=== PATIENT | female | born 1945 | race Asian ===

== ENCOUNTER 2017-12-27 08:22 | Inpatient (IN) | payer OTHER, BC ==
--- NOTE | 2017-12-27 08:47 | CPEKG ---
Heart Rate: 74 RR Interval: 811 P-R Interval: 156 QRSD Interval: 76 QT Interval: 416 QTC Interval: 462 P [place]: 19 QRS [place]: 7 T Wave [place]: 72 EKG Severity - BORDERLINE ECG - EKG Impression: SINUS RHYTHM EKG Impression: BORDERLINE T WAVE ABNORMALITIES Electronically Signed By: Carley Turner 27-Dec-2017 14:45:50
[2017-12-27] MEDS ORDERED: NS 500 ML IV ONE (08:52)
--- NOTE | 2017-12-27 08:59 | EDPHY ---
H & P Time Seen by Provider: 12/27/17 08:39 HPI/ROS: CHIEF COMPLAINT: Fall, head injury HISTORY OF PRESENT ILLNESS: Patient is a 72-year-old female with a history of dementia who presents to the emergency department after having a fall. The patient was found down in the bathroom. Per report, her family thinks that she was washing her hands when she fell. It is unclear how long she was down. The patient does not recall the event. The patient has no recollection of preceding symptoms. The patient denies any headache or neck pain. No chest pain or shortness of breath. No abdominal pain. No nausea or vomiting. The patient is visiting her son from [place]. She has been here for 3 days. REVIEW OF SYSTEMS: My complete review of systems is negative except as mentioned in the HPI. Past Medical/Surgical History: Includes dementia, chronic pain, GERD, rectal cancer (remote) Past surgical history: Rectal canceled surgery. Social history: The patient is . She lives in [place]. No drugs or alcohol. Smoking Status: Never smoked Physical Exam: 36.5, 123/67, 70, 16, 94% on room air GENERAL: No acute distress, alert. HEENT: PERRLA. Eyes normal to inspection, normal pharynx, no signs of dehydration. The patient has a posterior hematoma with laceration 2 cm. No galea involvement. NECK: No thyromegaly, no lymphadenopathy, supple. No spinal tenderness. RESPIRATORY: Clear to auscultation bilaterally, no rales, rhonchi or wheezing. No chest wall tenderness. CVS: Regular rate and rhythm, no rubs, murmurs, or gallops. ABDOMEN: Soft, nontender, nondistended, no organomegaly. BACK: Normal to inspection, no CVA tenderness. No spinal tenderness. SKIN: Normal color, no rash, warm, dry. No pallor. EXTREMITIES: No pedal edema, no calf tenderness, no Homans sign or cords, no joint swelling. Moves all extremities freely. No signs traumatic injury. NEURO/PSYCH: Alert and oriented x2, normal mood and affect, normal motor sensory exam. No obvious cranial nerve deficit. Constitutional: Initial Vital Signs Temperature (C) 36.5 C 12/27/17 08:23 Heart Rate 78 12/27/17 08:23 Respiratory Rate 16 12/27/17 08:23 Blood Pressure 122/67 H 12/27/17 08:23 O2 Sat (%) 94 12/27/17 08:23 O2 Delivery Mode Room Air Allergies/Adverse Reactions: shrimp Allergy (Uncoded 12/27/17 08:27) Home Medications: Medication Instructions Recorded Lyrica 12/27/17 Omeprazole 12/27/17 Medical Decision Making - Diagnostics Imaging Results: Imaging Impressions Cervical Spine CT 12/27/17 08:54 Impression: 1. There is no acute intracranial abnormality identified on this unenhanced CT evaluation. 2. There is a 2.6 cm right posterior parietal scalp hematoma. There is no associated skull fracture. 3. Advanced senescent features. UNENHANCED CT SCAN OF THE CERVICAL SPINE Technique: A multidetector unenhanced helical CT scan was obtained from the clivus caudally through the upper thoracic spine, with images reformatted at 1.50 mm increments, and are reviewed in soft tissue, bone, and lung windows. Parasagittal and paracoronal reconstructed images are reviewed on the workstation. The DFOV is 12.5 cm. A dose reduction protocol was used. Findings: There is reversal of the normal cervical lordosis, suggestive of either recumbent positioning or underlying muscle spasm. There is also a slight head tilt to the right and a mild levocervical curvature. The cervical vertebral body heights and posterior alignments are preserved. There is no acute fracture, or facet malalignment. The interspinous distances are normal. The craniocervical junction is normal. The predental space, and the atlantoaxial lateral mass alignment is normal. The base and the tip of the dens are normal. There is advanced degenerative disk space narrowing at C5-C6 with a dorsal disk osteophyte complex resulting in a moderate central canal stenosis, with an AP canal diameter of 8.9 mm. There is mild facet hypertrophy and uncovertebral degenerative spondylosis resulting in mild right and moderate left neural foraminal stenosis at this level. There is no prevertebral or epidural hematoma identified. There is mild thyromegaly. There is some atherosclerotic calcification associated with the carotid bulbs and bifurcations. The right internal jugular vein is more dominant in size than the left. The lung apices are notable for some areas of mild air trapping/minimal groundglass attenuation. Impression: 1. Reversal of the normal cervical lordosis. 2. Advanced degenerative disk disease and degenerative spondylosis at C5-C6 with a dorsal disk osteophyte complex resulting in moderate central canal stenosis, moderate left neural foraminal narrowing, and mild right neural foraminal narrowing. 3. There is no acute cervical osseous abnormality identified. If there is further clinical concern regarding the patient's symptoms, correlative MR imaging could be considered, if otherwise not contraindicated. Findings were discussed with MAGALYS ESPINAL MD at 10:23, on 12/27/2017. Head CT 12/27/17 08:54 Impression: 1. There is no acute intracranial abnormality identified on this unenhanced CT evaluation. 2. There is a 2.6 cm right posterior parietal scalp hematoma. There is no associated skull fracture. 3. Advanced senescent features. UNENHANCED CT SCAN OF THE CERVICAL SPINE Technique: A multidetector unenhanced helical CT scan was obtained from the clivus caudally through the upper thoracic spine, with images reformatted at 1.50 mm increments, and are reviewed in soft tissue, bone, and lung windows. Parasagittal and paracoronal reconstructed images are reviewed on the workstation. The DFOV is 12.5 cm. A dose reduction protocol was used. Findings: There is reversal of the normal cervical lordosis, suggestive of either recumbent positioning or underlying muscle spasm. There is also a slight head tilt to the right and a mild levocervical curvature. The cervical vertebral body heights and posterior alignments are preserved. There is no acute fracture, or facet malalignment. The interspinous distances are normal. The craniocervical junction is normal. The predental space, and the atlantoaxial lateral mass alignment is normal. The base and the tip of the dens are normal. There is advanced degenerative disk space narrowing at C5-C6 with a dorsal disk osteophyte complex resulting in a moderate central canal stenosis, with an AP canal diameter of 8.9 mm. There is mild facet hypertrophy and uncovertebral degenerative spondylosis resulting in mild right and moderate left neural foraminal stenosis at this level. There is no prevertebral or epidural hematoma identified. There is mild thyromegaly. There is some atherosclerotic calcification associated with the carotid bulbs and bifurcations. The right internal jugular vein is more dominant in size than the left. The lung apices are notable for some areas of mild air trapping/minimal groundglass attenuation. Impression: 1. Reversal of the normal cervical lordosis. 2. Advanced degenerative disk disease and degenerative spondylosis at C5-C6 with a dorsal disk osteophyte complex resulting in moderate central canal stenosis, moderate left neural foraminal narrowing, and mild right neural foraminal narrowing. 3. There is no acute cervical osseous abnormality identified. If there is further clinical concern regarding the patient's symptoms, correlative MR imaging could be considered, if otherwise not contraindicated. Findings were discussed with MAGALYS ESPINAL MD at 10:23, on 12/27/2017. Procedures: Procedure: Laceration repair. Verbal consent was obtained from the patient. The 2 cm laceration on the posterior head was anesthetized using lidocaine and epinephrine. The wound was scrubbed, draped and explored to its base with a gloved finger. There were no deep structures involved. The wound was repaired with azeem. The wound repair was simple. The procedure was performed by myself. ED Course/Re-evaluation: In the emergency department I discussed possible etiologies with the patient and family. I answered all her questions. An IV was placed. Laboratory studies, head CT, C-spine CT and EKG were obtained. Sinus rhythm at 74. Normal axis. Normal intervals. Borderline T-wave abnormalities. The patient's CBC and chemistry were unremarkable. Troponin was negative. Head CT, C-spine CT: Please refer the dictated report by Dr. Robles. No acute disease noted other than the hematoma. I discussed the results with the patient and family. I answered all their questions. On recheck the patient was doing well. She had no complaints. The patient's wound was repaired. I discussed case with the hospitalist service. Dr. Moreno will admit. Differential Diagnosis: My differential includes but is not limited to syncope, fall, dementia, subarachnoid hemorrhage, subdural hematoma, epidural hematoma, skull fracture, laceration, electrolyte abnormality, sugar abnormality, dysrhythmia, ACS, acute AL, dissection, aneurysm, CVA - Data Points Laboratory Results: Laboratory Results 12/27/17 08:50 12/27/17 08:50 12/27/17 12/27/17 08:50 08:50 WBC 8.61 10^3/uL 10^3/uL (3.80-9.50) RBC 4.36 10^6/uL 10^6/uL (4.18-5.33) Hgb 12.8 g/dL g/dL (12.6-16.3) Hct 39.0 % % (38.0-47.0) MCV 89.4 fL fL (81.5-99.8) MCH 29.4 pg pg (27.9-34.1) MCHC 32.8 g/dL g/dL (32.4-36.7) RDW 13.1 % % (11.5-15.2) Plt Count 270 10^3/uL 10^3/uL (150-400) MPV 9.4 fL fL (8.7-11.7) Neut % (Auto) 75.8 % H % (39.3-74.2) Lymph % (Auto) 16.7 % % (15.0-45.0) [place] % (Auto) 5.1 % % (4.5-13.0) Eos % (Auto) 1.0 % % (0.6-7.6) Baso % (Auto) 0.8 % % (0.3-1.7) Nucleat RBC Rel Count 0.0 % % (0.0-0.2) Absolute Neuts (auto) 6.52 10^3/uL H 10^3/uL (1.70-6.50) Absolute Lymphs (auto) 1.44 10^3/uL 10^3/uL (1.00-3.00) Absolute Monos (auto) 0.44 10^3/uL 10^3/uL (0.30-0.80) Absolute Eos (auto) 0.09 10^3/uL 10^3/uL (0.03-0.40) Absolute Basos (auto) 0.07 10^3/uL 10^3/uL (0.02-0.10) Absolute Nucleated RBC 0.00 10^3/uL 10^3/uL (0-0.01) Immature Gran % 0.6 % % (0.0-1.1) Immature Gran # 0.05 10^3/uL 10^3/uL (0.00-0.10) Sodium 144 mEq/L mEq/L (135-145) Potassium 4.2 mEq/L mEq/L (3.5-5.2) Chloride 107 mEq/L mEq/L (97-110) Carbon Dioxide 23 mEq/l mEq/l (22-31) Anion Gap 14 mEq/L mEq/L (8-16) BUN 32 mg/dL H mg/dL (7-23) Creatinine 0.9 mg/dL mg/dL (0.6-1.0) Estimated GFR > 60 Glucose 136 mg/dL H mg/dL (70-100) Calcium 9.2 mg/dL mg/dL (8.5-10.4) Troponin I < 0.012 ng/mL ng/mL (0.000-0.034) Medications Given: Discontinued Medications Sodium Chloride (Ns) 500 mls @ 0 mls/hr IV EDNOW ONE; Wide Open PRN Reason: Protocol Stop: 12/27/17 08:53 Last Admin: 12/27/17 09:15 Dose: 500 mls Ondansetron HCl (Zofran) 4 mg IVP EDNOW ONE Stop: 12/27/17 09:25 Last Admin: 12/27/17 09:25 Dose: 4 mg Departure - Departure Disposition: [facility] Inpatient Acute Clinical Impression: Laceration of head Fall Qualifiers: Encounter type: initial encounter Qualified Code(s): W19.XXXA - Unspecified fall, initial encounter Head injury Qualifiers: Encounter type: initial encounter Qualified Code(s): S09.90XA - Unspecified injury of head, initial encounter Condition: Good Instructions: Laceration (ED), Care For Your Stitches (ED) Additional Instructions: You need your azeem removed on 01/04/2018 Referrals: BRENDON MARTELL [Other] - As per Instructions
[2017-12-27 09:03] LABS: PLATELET COUNT 270 10^3/uL (150-400)
[2017-12-27] MEDS ORDERED: ONDANSETRON 4 MG/2 ML VIAL ONE (09:23)
[2017-12-27] MEDS ORDERED: ONDANSETRON 4 MG/2 ML VIAL IVP ONE (09:24)
[2017-12-27] MEDS ORDERED: ONDANSETRON 4 MG/2 ML VIAL IVP PRN (13:22)
[2017-12-27] MEDS ORDERED: ACETAMINOPHEN 325 MG TAB PO PRN (13:22)
[2017-12-27] MEDS ORDERED: ONDANSETRON DISINTEGRATING 4 MG TAB PO PRN (13:22)
--- NOTE | 2017-12-27 13:48 | PDGENHP ---
History and Physical - Chief Complaint syncope - History of Present Illness 72 yo female with h/o dementia. She woke up around 6 am and went to the bathroom and passed out. She does not recall the event. She denies recalling any preceding symptoms such as dizziness, lightheadedness, CP, SOB headache or vision changes. She and her are visiting their son and she arrived from [place] 3 days ago. Her found her on the ground with a bit of blood on the walk in shower edge. They were able to get her back into bed. She was then able to walk to the car and family brought her to the ED. History Information - Allergies/Home Medication List Allergies/Adverse Reactions: shrimp Allergy (Uncoded 12/27/17 08:27) Home Medications: Alendronate Sodium [Fosamax 70 MG (*)] 70 mg PO PALM@0700 12/27/17 [Last Taken 05/01] DULoxetine [Cymbalta 60 MG (*)] 60 mg PO DAILY 12/27/17 [Last Taken 12/26/17] Donepezil HCl 10 mg PO HS 12/27/17 [Last Taken 12/26/17] Herbals/Supplements -Info Only 1 ea PO DAILY 12/27/17 [Last Taken Unknown] Omeprazole 20 mg PO HS 12/27/17 [Last Taken 12/26/17] Omeprazole 40 mg PO DAILY 12/27/17 [Last Taken 12/26/17] Polyethylene Glycol 3350 [Miralax 17 gm (*)] 17 gm PO DAILY 12/27/17 [Last Taken 12/26/17] Pregabalin [Lyrica 75mg (*)] 75 mg PO BID 12/27/17 [Last Taken 12/26/17] Simvastatin 20 mg PO HS 12/27/17 [Last Taken 12/26/17] I have personally reviewed and updated: family history, medical history, social history, surgical history - Past Medical History Additional medical history: rectal cancer. dementia. dysphagia. gerd. depression. hyperlipidemia - Surgical History Additional surgical history: surgical resection of rectal cancer. surgical repair of wrist fracture - Family History Additional family history: parents are both , lived into their 80's - Social History Smoking Status: Never smoked Alcohol Use: None Drug Use: None Additional social history: Lives in [place] with her . Independent. Review of Systems Review of Systems: ROS: 10pt was reviewed & negative except for what was stated in HPI & below Physical Exam Physical Exam: Temp Pulse Resp BP Pulse Ox 36.7 C 69 14 128/70 H 92 12/27/17 11:57 12/27/17 11:57 12/27/17 11:57 12/27/17 11:57 12/27/17 11:57 Constitutional: no apparent distress Eyes: PERRL Ears, Nose, Mouth, Throat: moist mucous membranes Cardiovascular: regular rate and rhythym, no murmur, rub, or gallop Respiratory: no respiratory distress, clear to auscultation Gastrointestinal: normoactive bowel sounds, soft, non-tender abdomen Skin: warm Musculoskeletal: full muscle strength Neurologic: AAOx3 Psychiatric: interacting appropriately, poor memory Lab Data & Imaging Review 12/27/17 08:50 12/27/17 08:50 WBC 8.61 10^3/uL (3.80-9.50) 12/27/17 08:50 RBC 4.36 10^6/uL (4.18-5.33) 12/27/17 08:50 Hgb 12.8 g/dL (12.6-16.3) 12/27/17 08:50 Hct 39.0 % (38.0-47.0) 12/27/17 08:50 MCV 89.4 fL (81.5-99.8) 12/27/17 08:50 MCH 29.4 pg (27.9-34.1) 12/27/17 08:50 MCHC 32.8 g/dL (32.4-36.7) 12/27/17 08:50 RDW 13.1 % (11.5-15.2) 12/27/17 08:50 Plt Count 270 10^3/uL (150-400) 12/27/17 08:50 MPV 9.4 fL (8.7-11.7) 12/27/17 08:50 Neut % (Auto) 75.8 % (39.3-74.2) H 12/27/17 08:50 Lymph % (Auto) 16.7 % (15.0-45.0) 12/27/17 08:50 [place] % (Auto) 5.1 % (4.5-13.0) 12/27/17 08:50 Eos % (Auto) 1.0 % (0.6-7.6) 12/27/17 08:50 Baso % (Auto) 0.8 % (0.3-1.7) 12/27/17 08:50 Nucleat RBC Rel Count 0.0 % (0.0-0.2) 12/27/17 08:50 Absolute Neuts (auto) 6.52 10^3/uL (1.70-6.50) H 12/27/17 08:50 Absolute Lymphs (auto) 1.44 10^3/uL (1.00-3.00) 12/27/17 08:50 Absolute Monos (auto) 0.44 10^3/uL (0.30-0.80) 12/27/17 08:50 Absolute Eos (auto) 0.09 10^3/uL (0.03-0.40) 12/27/17 08:50 Absolute Basos (auto) 0.07 10^3/uL (0.02-0.10) 12/27/17 08:50 Absolute Nucleated RBC 0.00 10^3/uL (0-0.01) 12/27/17 08:50 Immature Gran % 0.6 % (0.0-1.1) 12/27/17 08:50 Immature Gran # 0.05 10^3/uL (0.00-0.10) 12/27/17 08:50 Sodium 144 mEq/L (135-145) 12/27/17 08:50 Potassium 4.2 mEq/L (3.5-5.2) 12/27/17 08:50 Chloride 107 mEq/L (97-110) 12/27/17 08:50 Carbon Dioxide 23 mEq/l (22-31) 12/27/17 08:50 Anion Gap 14 mEq/L (8-16) 12/27/17 08:50 BUN 32 mg/dL (7-23) H 12/27/17 08:50 Creatinine 0.9 mg/dL (0.6-1.0) 12/27/17 08:50 Estimated GFR > 60 12/27/17 08:50 Glucose 136 mg/dL (70-100) H 12/27/17 08:50 Calcium 9.2 mg/dL (8.5-10.4) 12/27/17 08:50 Troponin I < 0.012 ng/mL (0.000-0.034) 12/27/17 08:50 Visualized and Interpreted EKG results: Yes EKG Interpretation: Positive for: normal sinsus rhythm Assessment & Plan Assessment: Fall resulting in head injury - Scalp lac repaired in ED. Suspect syncope. No preceding symptoms. No cardiac hx. Note recent GI illness with vomiting and poor oral intake, may have contributed to volume depletion[place] Given age, will admit for cardiac workup. -monitor on telemetry, consider outpt event monitor -IVF's for hydration (orthostatic neg after NS bolus in ED) -check echo -trend troponin -no carotid bruits or previous symptoms suggestive of carotid artery stenosis so will defer imaging, though would consider if symptomatic -travel hx increases risk for PE, check D dimer and CTA if positive -needs scalp azeem removed in ~10 days Dementia - cont outpt meds Hyperlipidemia - cont statin Full code DVT PPLX - SCD's, defer pharm due to head injury Dispo - obs
[2017-12-27] MEDS ORDERED: NS 1,000 ML IV SCH (14:00)
[2017-12-27] MEDS ORDERED: PREGABALIN 25 MG CAP PO ONE (20:30)
[2017-12-27] MEDS ORDERED: NON-FORMULARY NEW DRUG (Donepezil Hcl [Donepezil Hcl] 10 MG) PO SCH (21:00)
[2017-12-27] MEDS ORDERED: NON-FORMULARY NEW DRUG (Simvastatin [Simvastatin] 20 MG) PO SCH (21:00)
[2017-12-27] MEDS ORDERED: NON-FORMULARY NEW DRUG (Omeprazole [Omeprazole] 20 MG) PO SCH (21:00)
[2017-12-27] MEDS: DONEPEZIL HCL 5 MG TAB PO SCH (21:20)
[2017-12-27] MEDS: PREGABALIN 75 MG CAP PO SCH (21:20)
[2017-12-27] MEDS: ATORVASTATIN CALCIUM 10 MG TAB PO SCH (21:21)
[2017-12-27] MEDS: PANTOPRAZOLE SODIUM 40 MG TAB PO SCH (21:21)
[2017-12-28] MEDS: PANTOPRAZOLE SODIUM 40 MG TAB PO SCH ×2 (08:52→21:11)
[2017-12-28] MEDS: DULoxetine 60 MG CAP PO SCH (08:52)
[2017-12-28] MEDS: POLYETHYLENE GLYCOL 3350 17 GM PKT PO SCH (08:52)
[2017-12-28] MEDS: PREGABALIN 75 MG CAP PO SCH ×2 (08:52→21:10)
[2017-12-28] MEDS ORDERED: NON-FORMULARY NEW DRUG (Omeprazole [Omeprazole] 40 MG) PO SCH (09:00)
--- NOTE | 2017-12-28 09:26 | CPEKG ---
Heart Rate: 83 RR Interval: 723 P-R Interval: 156 QRSD Interval: 76 QT Interval: 328 QTC Interval: 386 P [place]: 17 QRS [place]: 5 T Wave [place]: 40 EKG Severity - BORDERLINE ECG - EKG Impression: SINUS RHYTHM EKG Impression: DIFFUSE T WAVE ABNORMALITIES, BUT SLIGHTLY IMPROVED COMPARED TO DECEMBER 27, 2017 Electronically Signed By: Terry Anderson 28-Dec-2017 12:19:58
--- NOTE | 2017-12-28 09:48 | ECHO ---
[email or web address] [address] [address] Main: [phone] Fax: Transthoracic Echocardiogram Name: TORI ORR MR#: [id number] Study Date: 12/28/2017 Study Time: 08:10 AM Date of : 1945 Age: 72 year(s) Height: 152.4 cm (60 in.) Weight: 65.77 kg (145 lb.) BSA: 1.63 m2 Gender: Female Examination: Echo Indication: Cardiac: syncope Image Quality: Adequate Contrast: Requested by: Yanely Ryder BP: 140 mmHg/74 mmHg Heart Rate: Rhythm: Indication: Cardiac: syncope Procedure Staff Field Cane Scaler: Frances Liu [facility] Reading Physician: Bala Cantu MD Requesting Provider: Conclusions: Normal size left ventricle. No LV hypertrophy. Normal global systolic LV function. The ejection fraction is visually estimated to be 60 %. No regional wall motion abnormality. Diastolic dysfunction is present. . Normal size right ventricle. Normal RV function. The left atrium is normal in size. The mitral valve is normal in appearance and function. Mild mitral valve regurgitation is present. No mitral stenosis is present. The aortic valve is normal in appearance and function. Aortic sclerosis is present. There is no aortic valve regurgitation. Mild tricuspid regurgitation is present. The pulmonary artery pressure is normal. Right ventricular systolic pressure measures 37mmHg. The aorta is normal. Measurements: Chambers Valvular Assessment AV/MV Valvular Assessment TV/PV Normal Normal Normal Name Value Range Name Value Range Name Value Range Ao Shanti (2D): 2.6 cm (1.4 cm-2.6 AV meanP mmHg ( - ) TR Vmax: 2.82 mm/s ( - ) cm) LEOPOLDO (VTI): 1.7 cm ( - ) TR PGmax: 32 mmHg ( - ) IVSd (2D): 0.9 cm (0.6 cm-1.1 MV E Vmax: 0.72 m/s ( - ) syst. PAP: 37 mmHg ( - ) cm) MV A Vmax: 0.82 m/s ( - ) PV Vmax: 0.95 m/s (0.6 m/s-0.9 LVDd (2D): 4.4 cm (3.9 cm-5.3 MV E/A: 0.88 ( - ) m/s) cm) Patient: TORI ORR Study Date: 12/28/2017 Page 1 of 2 08:10 AM LVDs (2D): 2.2 cm (2.1 cm-4 MV PHT: 0.072 s ( - ) PV PGmax: 4 mmHg ( - ) cm) MVA (PHT): 3.1 s ( - ) LVPWd (2D): 0.9 cm ( - ) LVOTd 1.8 cm 1.8 cm mm LVEF (BP): 67 % (>=55 %) Visual EF: 60 % RVDd(2D): 2.3 cm (1.9 cm-3.8 cmmm) Continued Measurements: Chambers Valvular Assessment AV/MV Valvular Assessment TV/PV Name Value Name Value Name Value LADs: 3.4 cm MV DecTime: 232 m/s CVP (est.): 5 mmHg LADs Lon.0 cm MV E' Septal: 0.07 m/s LA Area: 16.5 cm2 MV E/E' Septal: 10.00 LA Volume: 40 ml MV E/E' Lateral: 8.70 LA Volume Index: 24.5 ml/m2 RA Area: 11.7 cm2 Additional Vessels Name Value Ao Ascendin.7 cm Inferior Vena Cava: 1.2 cm Findings: Left Ventricle: Normal size left ventricle. No LV hypertrophy. Normal global systolic LV function. The ejection fraction is visually estimated to be 60 %. No regional wall motion abnormality. Diastolic dysfunction is present. . Right Ventricle: Normal size right ventricle. Normal RV function. Left Atrium: The left atrium is normal in size. Right Atrium: The right atrium is normal in size. Mitral Valve: The mitral valve is normal in appearance and function. Mild mitral valve regurgitation is present. No mitral stenosis is present. Aortic Valve: The aortic valve is normal in appearance and function. Aortic sclerosis is present. There is no aortic valve regurgitation. No aortic valve stenosis is present. Tricuspid Valve: The tricuspid valve is normal in appearance and function. Mild tricuspid regurgitation is present. The pulmonary artery pressure is normal. Right ventricular systolic pressure measures 37mmHg. Pulmonic Valve: The pulmonic valve is normal in appearance and function. There is no pulmonic regurgitation seen. Aorta: The aorta is normal. IVC: The IVC is normal sized. Pericardium: No pericardial effusion. No pleural effusion. (No Signature Object) Patient: TORI ORR Study Date: 12/28/2017 Page 2 of 2 08:10 AM [id number]
--- NOTE | 2017-12-28 15:13 | ASMTCMCOM ---
CM Note CM Note Notes: 12/28/2017 Case Management Note Discussed pt during multi disciplinary rounds this morning. PT is recommending no further follow up. Pt admitted for syncope with a fall. Pt has a history of rectal cancer, dementia, dysphagia, GERD, depression and hyperlipidemia. Pt is visiting her son here in [place] and has plans to travel to [place] for a brief vacation with her and son. Case Management d/c poc: home independent with follow up as directed. Case management available if needs change. Date Signed: 12/28/2017 03:13 PM Electronically Signed By:Teresa Rondon RN
--- NOTE | 2017-12-28 17:15 | HOSPPROG ---
Hospitalist Progress Note Assessment/Plan: DIAGNOSES: -syncope, uncertain cause -abnormal EKG with ST and T abnormalities suspicious for anterior ischemia -dehydration -pre renal azotemia -acute gastroenteritis resolved PLANS: -Lexiscan myocardial perfusion stress test is ordered. This will not be able to go until tomorrow as she had caffeine this morning; if this study is abnormal we will likely recommend angiography particularly if there is evidence of an anterior perfusion abnormality -continue on rn cardiac cath here until we have completed her stress testing -continue oral hydration at this time, follow for any recurrence of GI symptoms Due to a need to continue on cardiac monitoring until we can get all the necessary further cardiac evaluations done will need to keep her here over night again and will change to inpatient for that reason I reviewed all the above in detail with the patient and her at bedside. I reviewed the case in detail with Dr. Lavell Garza SUBJECTIVE: Patient feels well today, no lightheadedness, pain, dyspnea She is able to ambulate reasonably well Talking to the and son today we find that the patient actually had quite a bit of nausea vomiting and diarrhea overnight 2 nights ago, probably impacting her syncopal spell yesterday. She did not have fever or bleeding with this. It came after eating dinner out. There was also no abdominal pain. At this point the patient is eating well and having normal bowel function and is not nauseous. 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 Lavell Garza. Both show a sinus rhythm. My concern is in the anterior leads of the initial EKG there is concave down ST segment elevation of approximately 3-3.5 mm , and this abnormality is resolved on the follow-up EKG. This would be suggestive potential anterior ischemia Objective: Vital Signs Temp Pulse Resp BP Pulse Ox 36.6 C 74 17 132/70 H 94 12/28/17 14:51 12/28/17 14:51 12/28/17 14:51 12/28/17 14:51 04/16/18 14:51 12/27/17 12/28/17 12/29/17 06:59 06:59 06:59 Intake Total 2180 Balance 2180 - Time Spent With Patient Time Spent with Patient: greater than 35 minutes Time Spent with Patient: Greater than 35 minutes spent on this patients care, greater than 50% of time spent counseling, educating, and coordinating care regarding the above mentioned plan. ICD10 Worksheet Patient Problems: Problems Problem Status Onset Fall Acute Head injury Acute Laceration of head Acute
[2017-12-28] MEDS: DONEPEZIL HCL 5 MG TAB PO SCH (21:10)
[2017-12-28] MEDS: ATORVASTATIN CALCIUM 10 MG TAB PO SCH (21:10)
--- NOTE | 2017-12-29 07:08 | PDMN ---
Medical Necessity Medical necessity: Change to IP, as of 12/28/17, per MD; los >2 mn for ongoing management of syncope, abnormal EKG suspicious for anterior ischemia, dehydration & pre renal azotemia; admit for further workup, cardiac monitoring & IVFs; hx rectal cancer, dementia & dysphagia; per progress note & order
[2017-12-29] MEDS: PANTOPRAZOLE SODIUM 40 MG TAB PO SCH (10:05)
[2017-12-29] MEDS: PREGABALIN 75 MG CAP PO SCH (10:06)
[2017-12-29] MEDS: DULoxetine 60 MG CAP PO SCH (10:06)
[2017-12-29] MEDS: POLYETHYLENE GLYCOL 3350 17 GM PKT PO SCH (10:25)
[2017-12-29] MEDS ORDERED: REGADENOSON 0.4 MG/5 ML SYR IVP ONE (14:23)
[2017-12-29 15:54] VITALS: BP 165/94
--- NOTE | 2017-12-29 16:49 | ASDISCHSUM ---
Discharge Information Plan Status:Home with No Needs Medically Cleared to Leave:12/29/2017 Discharge Date:12/29/2017 CM D/C Disposition:Home, Routine, Self-Care ADT D/C Disposition:Home, Routine, Self-Care Projected Discharge Date:12/29/2017 Transportation at D/C:Family Discharge Delay Reason: Follow-Up Date:12/29/2017 Discharge Slot: Final Diagnosis: Placement Information Patient Contact Information Contact Name:ALONDRAAMBROCIO Relationship:Percy Address: Work Phone: City:[place] Alternate Phone: State/[place] Code:[place] Email: Financial Information Financial Class:Medicare Primary Plan Desc:MEDICARE OUTPATIENT Primary Plan Number:[id number] Secondary Plan Desc: OUT OF STATE [facility] Secondary Plan Number:[id number] Assessment Information LACE LACE Length of stay for Answers: 2 days current admission Acuity / Level of Answers: No Care: Did the patient have an inpatient admission? Comorbidities - select Answers: Dementia all that apply Opioid dependence / Chronic pain Other Notes: GERD, Rectal cancer # of Emergency department Answers: 1-2 visits in the last 6 months Social determinants Answers: Mental health diagnosis (anxiety, depression, pers onality disorders, etc.) Score: 14 Date Signed: 12/29/2017 04:47 PM Electronically Signed By:Teresa Rondon RN [facility] Progress Note CM Note CM Note Notes: 12/28/2017 Case Management Note Discussed pt during multi disciplinary rounds this morning. PT is recommending no further follow up. Pt admitted for syncope with a fall. Pt has a history of rectal cancer, dementia, dysphagia, GERD, depression and hyperlipidemia. Pt is visiting her son here in [place] and has plans to travel to [place] for a brief vacation with her and son. Case Management d/c poc: home independent with follow up as directed. Case management available if needs change. Date Signed: 12/28/2017 03:13 PM Electronically Signed By:Teresa Rondon RN Case Management Discharge Plan Note Case Management Discharge Discharge Order Complete? Answers: Yes Patient to Obtain Answers: Independently Medications Transportation Arranged Answers: Family/Friends Family Notified Answers: Yes Discharge Comments Notes: 12/28/2017 Pt to d/c independent with family support. There are no further case management d/c needs identified. Date Signed: 12/29/2017 04:48 PM Electronically Signed By:Teresa Rondon RN Intervention Information Intervention Type:*FORBES-Signed Date of Service:12/28/2017 10:52 AM Patient Type:Observation Staff Member:Monse Godfrey Hours: Discipline: Severity: Comment:
--- NOTE | 2017-12-29 16:51 | PDDCSUM ---
Discharge Summary Discharge Summary: DISCHARGE DIAGNOSES: -acute syncopal episode without recurrence -close head injury with scalp laceration requiring stapling of the laceration, but no evidence of acute neurologic or skeletal injury -acute gastroenteritis -acute dehydration -pre renal azotemia -abnormal [address] segment elevations -chronic dementia PROCEDURES: Lexiscan stress test with myocardial perfusion imaging showing normal ejection fraction and no perfusion abnormalities CT scan of cervical spine CT scan of head HOSPITAL COURSE SUMMARY: This patient who had travel here by car from [place] had been out for a dinner and ended up with nausea vomiting diarrhea for few hours the night after the dinner. The next day if she had a sudden syncopal spell which was unwitnessed although her heard her fall and came to find her. She awakened early with no confusion and no other signs of seizure, but with a scalp laceration and a moderate amount of blood loss at that time. She was brought into the emergency room where she had no changes from her baseline dementia, no signs of neurologic injury acutely, no signs of skeletal injury or other acute injury on CT scanning of head and cervical spine other than her laceration. The laceration was cleaned and treated by stapling and is doing well. The patient was orthostatic and had an elevated BUN at the time of presentation. However she did not have any further nausea vomiting or diarrhea and has been eating well here and hydrating well. She did receive some IV hydration which resolved the orthostatic numbers and symptoms. At this time she is ambulating without any difficulty. Cardiac monitoring has not revealed any arrhythmia. In the emergency room she did have an EKG that showed some anterior ST segment elevations and these resolved on a repeat EKG. Because of this abnormality with her syncopal spell the patient did undergo Lexiscan stress testing and this was well tolerated and yielded normal results with a ejection fraction in the 60s and no perfusion abnormalities. PENDING TEST RESULTS: None MEDICATION CHANGES: None FOLLOW-UP PLAN: She will return to the ER here next week for removal of her azeem She is instructed to keep well hydrated Otherwise follow-up will be with her primary care physician as she arrives back home unless further issues arise requiring attention sooner Greater than 35 minutes bedside and care coordination time today
== END 2017-12-29 17:32 | disposition home or self-care (01) | DRG 641 ==
LOC: OBSVTOIN 10:32 → F2W 11:52
PROVIDERS: ADMIT Internal Medicine; ATTEND Internal Medicine
PROC: 0HQ0XZZ Repair Scalp Skin, External Approach (ICD-10-PCS; principal; 2017-12-27)
DX: E86.0 Dehydration (principal); R55 Syncope and collapse; S01.01XA Laceration without foreign body of scalp, initial encounter; W18.2XXA Fall in (into) shower or empty bathtub, initial encounter; Y92.012 Bathroom of single-family (private) house as the place of occurrence of the external cause; Y93.E8 Activity, other personal hygiene; Y99.8 Other external cause status; K52.9 Noninfective gastroenteritis and colitis, unspecified; R79.89 Other specified abnormal findings of blood chemistry; R94.31 Abnormal electrocardiogram [ECG] [EKG]; F03.90 Unspecified dementia, unspecified severity, without behavioral disturbance, psychotic disturbance, mood disturbance, and anxiety; K21.9 Gastro-esophageal reflux disease without esophagitis; F32.9 Major depressive disorder, single episode, unspecified; E78.5 Hyperlipidemia, unspecified; Z85.048 Personal history of other malignant neoplasm of rectum, rectosigmoid junction, and anus
CPT/HCPCS: 92523-GN; 96374; 97161-GP; 97165-GO; A9500; G0378; G8978-GP-CH; G8979-GP-CH; G8980-GP-CH; G8987-GO-CI; G8988-GO-CI; G8989-GO-CI; G9168-GN-CJ; G9169-GN-CJ; G9170-GN-CJ; J2405; J2785